=== PATIENT | male | born 1965 | race Caucasian/White ===

== ENCOUNTER → 2025-07-12 14:56 | Outpatient (BNVA) | payer OTHER, SELFPAY | PROVIDERS: Visit Provider Psychiatry & Neurology Psychiatry | DX: F43.12 Post-traumatic stress disorder, chronic (principal); F10.21 Alcohol dependence, in remission | CPT/HCPCS: 80061; 83036 ==

== ENCOUNTER → 2025-07-25 09:04 | Outpatient (BNVA) | payer MEDICAID, SELFPAY ==
[2025-07-13 16:29] VITALS: BP 135/83; BMI 29.0
== END ==
PROVIDERS: PCP Family Medicine; Visit Provider Family Medicine
DX: Z13.6 Encounter for screening for cardiovascular disorders (principal); Z12.5 Encounter for screening for malignant neoplasm of prostate
CPT/HCPCS: 80053; 84153; 84439; 84443; 85025